=== PATIENT | female | born 1950 ===

== ENCOUNTER 2023-04-18 18:57 | Emergency (ER) | payer OTHER ==
[~2023-04-18] VITALS: Ht 157.5 cm; Wt 53.7 kg
[2023-04-18 19:09] VITALS: BP 164/97; PULSE 92; RESP 18; TEMP 98.2
[2023-04-18] MEDS ORDERED: RABIES IMMUNE GLOBULIN/PF 150 UNIT/ML 10 ML VIAL IM. ONE ×2 (21:00→21:30)
[2023-04-18] MEDS ORDERED: BACITRACIN 0.9 GM PACKET OINTMENT TP ONE (21:00)
[2023-04-18] MEDS ORDERED: AMOX TR/POT CLAV 875 MG/125 MG TABLET PO ONE (21:00)
[2023-04-18] MEDS ORDERED: PERTUSS(ACELL),DIPH,TET VAC/PF 0.5 ML SYRINGE IM. ONE (21:00)
[2023-04-18] MEDS ORDERED: RABIES VACCINE, HUMAN DIPLOID/PF 2.5 UNITS/ML VIAL IM. ONE (21:00)
[2023-04-18] MEDS ORDERED: AMOX1TAB16 PO (22:11)
== END 2023-04-18 22:44 | disposition home or self-care (01) ==
LOC: EMS 18:58
DX: S81.852A Open bite, left lower leg, initial encounter (principal); E78.00 Pure hypercholesterolemia, unspecified; I10 Essential (primary) hypertension; W54.0XXA Bitten by dog, initial encounter; Y93.89 Activity, other specified; Y92.89 Other specified places as the place of occurrence of the external cause; Y99.8 Other external cause status
CPT/HCPCS: 90375; 90471; 90675; 90715; 96372; 99284

== ENCOUNTER 2023-04-21 09:51 | Emergency (ER) | payer OTHER ==
[~2023-04-21] VITALS: Ht 152.4 cm; Wt 53.6 kg
[~2023-04-21 09:51] MED LIST: AMOX1TAB16 PO
[2023-04-21] MEDS ORDERED: LISI5TAB21 PO (10:07)
[2023-04-21] MEDS ORDERED: ASPI-1451 PO (10:07)
[2023-04-21] MEDS ORDERED: ATOR10TA69 PO (10:07)
[2023-04-21] MEDS ORDERED: ALEN70TA80 PO (10:07)
[2023-04-21 10:08] VITALS: TEMP 98.3
[2023-04-21] MEDS ORDERED: RABIES VACCINE, HUMAN DIPLOID/PF 2.5 UNITS/ML VIAL IM. ONE (12:15)
[2023-04-21 12:45] VITALS: BP 162/86; PULSE 78; RESP 16
== END 2023-04-21 12:46 | disposition home or self-care (01) ==
LOC: EMS 09:51
DX: S81.852D Open bite, left lower leg, subsequent encounter (principal); E78.00 Pure hypercholesterolemia, unspecified; I10 Essential (primary) hypertension; Z23 Encounter for immunization; W54.0XXD Bitten by dog, subsequent encounter
CPT/HCPCS: 90471; 90675; 99283

== ENCOUNTER 2023-04-25 09:17 | Emergency (ER) | payer OTHER ==
[~2023-04-25] VITALS: Ht 149.9 cm; Wt 53.6 kg
[~2023-04-25 09:17] MED LIST changes: +ALEN70TA80 PO; +ASPI-1451 PO; +ATOR10TA69 PO; +LISI5TAB21 PO
[2023-04-25 09:36] VITALS: TEMP 98.1
[2023-04-25] MEDS: RABIES VACCINE, HUMAN DIPLOID/PF 2.5 UNITS/ML VIAL IM. ONE (10:16)
[2023-04-25 11:01] VITALS: BP 130/78; PULSE 85; RESP 16
== END 2023-04-25 11:02 | disposition home or self-care (01) ==
LOC: EMS 09:29
DX: S81.852D Open bite, left lower leg, subsequent encounter (principal); E78.00 Pure hypercholesterolemia, unspecified; I10 Essential (primary) hypertension; Z23 Encounter for immunization; W54.0XXD Bitten by dog, subsequent encounter
CPT/HCPCS: 90471; 90675; 99281

== ENCOUNTER 2023-05-02 09:51 | Emergency (ER) | payer OTHER ==
[~2023-05-02] VITALS: Ht 149.9 cm; Wt 53.6 kg
[2023-05-02 10:00] VITALS: BP 155/84; PULSE 88; RESP 16; TEMP 98.1
[2023-05-02] MEDS ORDERED: RABIES VACCINE, HUMAN DIPLOID/PF 2.5 UNITS/ML VIAL IM. ONE (10:00)
== END 2023-05-02 11:10 | disposition home or self-care (01) ==
LOC: EMS 09:51
DX: M54.9 Dorsalgia, unspecified (principal); E78.00 Pure hypercholesterolemia, unspecified; I10 Essential (primary) hypertension; Z23 Encounter for immunization
CPT/HCPCS: 90471; 90675; 99281